=== PATIENT | male | born 1990 | race Caucasian/White ===

== ENCOUNTER 2017-06-18 18:41 | Emergency (ER) | payer OTHER ==
[~2017-06-18] VITALS: Ht 177.8 cm; Wt 122.5 kg
[~2017-06-18 18:41] MED LIST: AMOXICILLIN875 MG PO; ANAPROX DS550 MG PO; BENTYL 10 MG CA10 M1 PO; CIPRO500 MG PO; FLAGYL500 MG PO; FLEXERIL PO; HYDROCODONE-AP1 EAC6 PO; IBUPROFEN 800800 M1 PO; MEDROLDOSEPACK PO; NAPROSYN500 MG PO; NOHOMEMEDICATIONS; NORCO 5-325 TA1 EAC1 PO; NORCO 5-325 TA1 EACH PO; NORCO 7.5-3251 EACH PO; PENICILLIN VK500 M1 PO; PERCOCET 5-3251 EACH PO; ROBAXIN500 MG PO; ULTRAM 50MG TAB50 MG PO; ZOFRAN ODT4 MG PO; ZOFRAN4 MG PO; ZOFRAN8 MG PO
[2017-06-18] MEDS ORDERED: NORCO 5-325 TA1 EACH PO (20:27)
[2017-06-18] MEDS ORDERED: NAPROSYN500 MG PO (20:27)
[2017-06-18 21:09] VITALS: BP 122/61
== END 2017-06-18 21:09 | disposition home or self-care (01) ==
LOC: M.ERS 18:41
DX: G89.29 Other chronic pain (principal); F17.210 Nicotine dependence, cigarettes, uncomplicated; M54.5 Low back pain

== ENCOUNTER 2017-09-04 13:07 | Inpatient (IN) | payer OTHER ==
[~2017-09-04] VITALS: Ht 177.8 cm; Wt 127.0 kg
[2017-09-04 13:19] VITALS: BP 127/82
[2017-09-04 13:28] LABS: URINE BILIRUBIN NEGATIVE (Negative); URINE BLOOD NEGATIVE (Negative); URINE CLARITY CLEAR; URINE COLOR YELLOW; URINE GLUCOSE-RANDOM NEGATIVE (Negative); URINE KETONES NEGATIVE (Negative); URINE LEUKOCYTES-REFLEX NEGATIVE (Negative); URINE NITRITE-REFLEX NEGATIVE (Negative); URINE PROTEIN NEGATIVE (Negative); URINE SPECIFIC GRAVITY 1.015 (1.005-1.030); URINE UROBILINOGEN 0.2 E.U./dl (0.2-1.0)
[2017-09-04 13:45] LABS: ABSOLUTE BASOPHILS 0.1 thou/uL (0.0-0.2); ABSOLUTE EOSINOPHILS 0.5 thou/uL (0.0-0.7); ABSOLUTE LYMPHOCYTES 2.9 thou/uL (0.8-5.3); ABSOLUTE MONOCYTES 0.9 thou/uL (0.0-1.2); BASOPHILS 0.8 %; EOSINOPHILS 5.7 %; HEMATOCRIT 44.4 % (42.0-52.0); HEMOGLOBIN 15.2 gm/dL (14.0-18.0); LYMPHOCYTES 35.2 %; MCH 31.1 pg (26.0-34.0); MCHC 34.4 g/dL (28.0-37.0); MCV 90.4 fL (80.0-100.0); MONOCYTES 10.4 %; MPV 8.7 fl. (7.2-11.1); NUCLEATED RBCS 0 /100WBC; PLATELET COUNT* 306 thou/uL (150-400); POLYS 47.9 %; RBC 4.91 mil/uL (4.50-6.00); RDW-CV 12.9 % (10.5-14.5); WBC 8.3 thou/uL (4.0-11.0)
[2017-09-04 13:49] LABS: CALCIUM 9.1 mg/dL (8.5-10.1); CREATININE 0.8 mg/dL (0.6-1.3); POTASSIUM 3.7 mmol/L (3.5-5.1)
[2017-09-04 13:54] LABS: TOTAL BILIRUBIN 0.5 mg/dL (<0.1-1.0); TOTAL PROTEIN 7.5 g/dL (6.4-8.2)
[2017-09-04 17:47] VITALS: BP 108/67
[2017-09-04 21:15] VITALS: BP 116/70
--- NOTE | 2017-09-05 06:40 | NUR ---
PT SLEPT WELL OVERNIGHT WITHOUT COMPLAINTS. RECEIVED IV PAIN MED AT FOR CO L ABD PAIN WITH GOOD RESULT. DENIES N/V, TOLERATED FEW BITES REGULAR DIET DINNER HE STATES. MALENA SL. UP AD LYUBOV IN ROOM. ABLE TO USE CALL LITE AND MAKE NEEDS KNOWN. NO LABS DRAWN THIS MORNING.
[2017-09-05 07:55] VITALS: BP 110/53
--- NOTE | 2017-09-05 15:38 | NUR ---
SW met with pt to complete initial assessment, introduce self, and SW role. Pt curled up in the bed and explained that when he is able to sleep, at least then he does not feel the pain. Pt alert, oriented, pleasant. 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 Pt lives at home with his and 2 children. Pt says that since his business is new, he has not built up enough to have insurance yet and that the household income is too much to be eligible for assistance but not enough to afford insurance beyond his children's insurance. Pt did not express any dc needs; pt says he is hopeful that he will be ready and able to dc home tomorrow. SW to follow.
--- NOTE | 2017-09-05 17:06 | NUR ---
PATIENT A&OX4, ROOM AIR, IV RIGHT AC, SALINE LOCK. UP AD LYUBOV, STEADY GAIT. C/O ABDOMINAL PAIN, RELIEF WITH MEDICAION. NOTING PAIN CAN SOMETIMES RADIATE TO LEFT TESTICLE. PATIENT STATES NO TESTICLE PAIN TODAY. UROLOGY HERE, SEEING PATIENT AT BEDSIDE. NO OTHER CONCERNS AT THIS TIME. APPROPRIATE AND COOPORATIVE WITH CARE.
[2017-09-05 18:05] VITALS: BP 110/73
--- NOTE | 2017-09-05 18:24 | NUR ---
ASSUMED CARE OF PATIENT AT 1730. REPORT RECEIVED. RESTING IN BED. DENIES ANY NEEDS. FAMILY AT BEDSIDE. WILL CONTINUE WITH PLAN OF CARE.
[2017-09-05 20:20] VITALS: BP 120/64
--- NOTE | 2017-09-06 05:51 | NUR ---
PT SLEPT MOST OF SHIFT. ASSESSMENT DOCUMENTED. MEDS GIVEN PER E-MAR. IV PATENT. PT REQUESTED PAIN MEDS 1 TIME THIS SHIFT. NO REPORTS OF NAUSEA. NO CONCERNS AT THIS TIME, WILL CONTINUE WITH PLAN OF CARE.
[2017-09-06 08:10] VITALS: BP 135/84
[2017-09-06 08:57] VITALS: BP 135/84
--- NOTE | 2017-09-06 10:27 | NUR ---
PATIENT DISCHARGED TO HOME WITH FRIEND. IV DC'D. VERBALIZES UNDERSTANDING OF PAPERWORK, NO SCRIPTS. PATIENT AMBULATED OUT OF HOSPITAL WITH ALL BELONGINGS.
== END 2017-09-06 09:58 | disposition home or self-care (01) | DRG 729 ==
LOC: M.ERS 13:07 → M.3W 15:05 → M.TBA-ER 15:05 → M.3W 17:49
PROVIDERS: Nurse Practitioner Psychiatric/Mental Health; ADMIT Internal Medicine
DX: I86.1 Scrotal varices (principal); K56.690 Other partial intestinal obstruction; Z68.41 Body mass index [BMI] 40.0-44.9, adult; G43.909 Migraine, unspecified, not intractable, without status migrainosus; F17.210 Nicotine dependence, cigarettes, uncomplicated; E66.9 Obesity, unspecified; F12.90 Cannabis use, unspecified, uncomplicated; Z79.899 Other long term (current) drug therapy

== ENCOUNTER 2017-09-08 13:07 | Emergency (ER) | payer OTHER ==
[~2017-09-08] VITALS: Ht 177.8 cm; Wt 120.2 kg
[2017-09-08 13:55] LABS: ABSOLUTE BASOPHILS 0.1 thou/uL (0.0-0.2); ABSOLUTE EOSINOPHILS 0.2 thou/uL (0.0-0.7); ABSOLUTE LYMPHOCYTES 2.6 thou/uL (0.8-5.3); ABSOLUTE MONOCYTES 0.7 thou/uL (0.0-1.2); ABSOLUTE NEUTROPHILS 4.5 thou/uL (1.6-8.1); EOSINOPHILS 2.4 %; HEMATOCRIT 48.1 % (42.0-52.0); HEMOGLOBIN 16.6 gm/dL (14.0-18.0); LYMPHOCYTES 32.2 %; MCH 30.9 pg (26.0-34.0); MCHC 34.5 g/dL (28.0-37.0); MCV 89.6 fL (80.0-100.0); MONOCYTES 8.3 %; MPV 8.8 fl. (7.2-11.1); NUCLEATED RBCS 0 /100WBC; PLATELET COUNT* 341 thou/uL (150-400); POLYS 56.1 %; RBC 5.37 mil/uL (4.50-6.00); RDW-CV 12.9 % (10.5-14.5); WBC 8.1 thou/uL (4.0-11.0)
[2017-09-08 14:06] LABS: CALCIUM 9.4 mg/dL (8.5-10.1); CREATININE 0.8 mg/dL (0.6-1.3); POTASSIUM 3.5 mmol/L (3.5-5.1)
[2017-09-08 14:10] LABS: TOTAL BILIRUBIN 0.4 mg/dL (<0.1-1.0); TOTAL PROTEIN 7.7 g/dL (6.4-8.2)
[2017-09-08 15:45] LABS: URINE BILIRUBIN NEGATIVE (Negative); URINE BLOOD NEGATIVE (Negative); URINE CLARITY CLEAR; URINE COLOR YELLOW; URINE GLUCOSE-RANDOM NEGATIVE (Negative); URINE KETONES NEGATIVE (Negative); URINE LEUKOCYTES NEGATIVE (Negative); URINE NITRITE NEGATIVE (Negative); URINE PROTEIN NEGATIVE (Negative); URINE SPECIFIC GRAVITY 1.015 (1.005-1.030); URINE UROBILINOGEN 0.2 E.U./dl (0.2-1.0)
[2017-09-08] MEDS ORDERED: FLEXERIL PO (16:18)
[2017-09-08 16:30] VITALS: BP 137/80
--- NOTE | 2017-09-09 13:24 | EKG ---
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1990 Requested By: Gillian Khan Order Number: [id number] MD: Cruz Vivar Measurements Intervals [place] Rate: 63 P: 29 IA: 187 QRS: 1 QRSD: 103 T: -10 QT: 382 QTc: 392 Interpretive Statements Sinus rhythm Probable left ventricular hypertrophy, bivoltage Borderline T abnormalities, inferior leads Baseline wander in lead(s) I No previous ECG available for comparison Electronically Signed On 09-09-2017 13:24:15 CDT by Cruz Vivar [email or web address] <ELECTRONICALLY SIGNED> By: Cruz Vivar MD, [facility] 09/09/17 1324 1342 Cruz Vivar MD, FACC /EPI
== END 2017-09-08 16:31 | disposition home or self-care (01) ==
LOC: M.ERS 13:07
PROVIDERS: Physician Assistant
DX: R10.9 Unspecified abdominal pain (principal); F17.210 Nicotine dependence, cigarettes, uncomplicated; G43.909 Migraine, unspecified, not intractable, without status migrainosus

== ENCOUNTER 2017-11-20 23:11 | Emergency (ER) | payer OTHER ==
[~2017-11-20] VITALS: Ht 177.8 cm; Wt 127.0 kg
[2017-11-20] MEDS ORDERED: IBUPROFEN 800800 M1 PO (23:34)
[2017-11-20 23:45] VITALS: BP 152/91
== END 2017-11-20 23:45 | disposition home or self-care (01) ==
LOC: M.ERS 23:11
DX: G89.29 Other chronic pain (principal); M54.5 Low back pain; G43.909 Migraine, unspecified, not intractable, without status migrainosus; F17.210 Nicotine dependence, cigarettes, uncomplicated

== ENCOUNTER 2018-05-11 12:21 | Emergency (ER) | payer OTHER ==
[~2018-05-11] VITALS: Ht 177.8 cm; Wt 113.4 kg
[2018-05-11] MEDS ORDERED: TYLENOL EXTRA500 MG PO (12:36)
[2018-05-11] MEDS ORDERED: NORCO 5-325 TA1 EACH PO (13:33)
[2018-05-11] MEDS ORDERED: IBUPROFEN 800800 M1 PO (13:33)
[2018-05-11 13:44] VITALS: BP 145/100
== END 2018-05-11 13:44 | disposition home or self-care (01) ==
LOC: M.ERS 12:21
DX: S52.614A Nondisplaced fracture of right ulna styloid process, initial encounter for closed fracture (principal); G43.909 Migraine, unspecified, not intractable, without status migrainosus; F17.210 Nicotine dependence, cigarettes, uncomplicated; X58.XXXA Exposure to other specified factors, initial encounter; Y93.89 Activity, other specified; Y92.89 Other specified places as the place of occurrence of the external cause; Y99.8 Other external cause status

== ENCOUNTER 2018-05-24 14:21 | Emergency (ER) | payer OTHER ==
[~2018-05-24] VITALS: Ht 177.8 cm; Wt 122.5 kg
[~2018-05-24 14:21] MED LIST changes: +TYLENOL EXTRA500 MG PO
[2018-05-24] MEDS ORDERED: NORCO 5-325 TA1 EACH PO (15:28)
[2018-05-24 15:44] VITALS: BP 138/89
== END 2018-05-24 15:44 | disposition home or self-care (01) ==
LOC: M.ERS 14:21
DX: S52.611D Displaced fracture of right ulna styloid process, subsequent encounter for closed fracture with routine healing (principal); F17.210 Nicotine dependence, cigarettes, uncomplicated; G43.909 Migraine, unspecified, not intractable, without status migrainosus; Z90.49 Acquired absence of other specified parts of digestive tract; X58.XXXD Exposure to other specified factors, subsequent encounter

== ENCOUNTER 2018-10-18 16:17 | Emergency (ER) | payer OTHER ==
[~2018-10-18] VITALS: Ht 177.8 cm; Wt 120.2 kg
[2018-10-18] MEDS ORDERED: ACETAMINOPHEN-1 EAC1 PO (17:56)
[2018-10-18 18:11] VITALS: BP 161/95
== END 2018-10-18 18:12 | disposition home or self-care (01) ==
LOC: M.ERS 16:17
DX: S93.691A Other sprain of right foot, initial encounter (principal); G43.909 Migraine, unspecified, not intractable, without status migrainosus; F17.210 Nicotine dependence, cigarettes, uncomplicated; X58.XXXA Exposure to other specified factors, initial encounter; Y93.89 Activity, other specified; Y92.89 Other specified places as the place of occurrence of the external cause; Y99.8 Other external cause status

== ENCOUNTER 2018-12-05 17:50 | Emergency (ER) | payer OTHER ==
[~2018-12-05] VITALS: Ht 177.8 cm; Wt 115.7 kg
[~2018-12-05 17:50] MED LIST changes: +ACETAMINOPHEN-1 EAC1 PO
[2018-12-05 19:00] VITALS: BP 146/86
[2018-12-05 19:13] LABS: ABSOLUTE BASOPHILS 0.1 thou/uL (0.0-0.2); ABSOLUTE EOSINOPHILS 0.1 thou/uL (0.0-0.7); ABSOLUTE LYMPHOCYTES 1.9 thou/uL (0.8-5.3); ABSOLUTE MONOCYTES 1.1 thou/uL (0.0-1.2); ABSOLUTE NEUTROPHILS 12.6 thou/uL (1.6-8.1); BASOPHILS 0.5 %; EOSINOPHILS 0.7 %; HEMATOCRIT 44.8 % (42.0-52.0); HEMOGLOBIN 15.3 gm/dL (14.0-18.0); LYMPHOCYTES 12.2 %; MCH 30.9 pg (26.0-34.0); MCHC 34.1 g/dL (28.0-37.0); MCV 90.6 fL (80.0-100.0); MONOCYTES 7.1 %; MPV 8.3 fl. (7.2-11.1); NUCLEATED RBCS 0 /100WBC; PLATELET COUNT* 337 thou/uL (150-400); POLYS 79.5 %; RBC 4.95 mil/uL (4.50-6.00); RDW-CV 13.2 % (10.5-14.5); WBC 15.9 thou/uL (4.0-11.0)
[2018-12-05 19:17] LABS: CALCIUM 9.1 mg/dL (8.5-10.1); CREATININE 0.8 mg/dL (0.6-1.3); POTASSIUM 3.7 mmol/L (3.5-5.1)
[2018-12-05 19:22] LABS: ALBUMIN 3.9 g/dL (3.4-5.0); TOTAL BILIRUBIN 0.8 mg/dL (<0.1-1.0); TOTAL PROTEIN 7.1 g/dL (6.4-8.2)
== END 2018-12-05 19:29 | disposition left against medical advice (07) ==
LOC: M.ERS 17:50
PROVIDERS: Physician Assistant
DX: J02.9 Acute pharyngitis, unspecified (principal); R47.81 Slurred speech; G43.909 Migraine, unspecified, not intractable, without status migrainosus; F17.210 Nicotine dependence, cigarettes, uncomplicated